=== PATIENT | male | born 1950 | race Caucasian/White ===

== ENCOUNTER → 2019-07-03 07:16 | Outpatient (CLI) | payer MEDICARE, OTHER, SELFPAY ==
[2019-07-03 08:07] LABS: PSA,Total- Diagnostic 0.84 ng/mL (0.0-4.0)
== END ==
PROVIDERS: Family Provider Family Medicine; PCP Family Medicine
DX: D40.0 Neoplasm of uncertain behavior of prostate (principal)
CPT/HCPCS: 36415; 84153

== ENCOUNTER → 2020-05-30 08:08 | Outpatient (CLI) | payer MEDICARE, OTHER, SELFPAY | PROVIDERS: PCP Family Medicine | DX: D40.0 Neoplasm of uncertain behavior of prostate (principal) | CPT/HCPCS: 36415; 84153 ==

== ENCOUNTER → 2021-05-23 06:06 | Outpatient (CLI) | payer MEDICARE, OTHER, SELFPAY ==
[2021-05-23 07:52] LABS: Hemoglobin A1c 6.6 % (3.8-5.6)
[2021-05-23 08:01] LABS: ALB/GLOB Ratio 0.9 RATIO (0.9-2.4); AST(SGOT) 21 U/L (15-37); Alanine Aminotransfer ALT/SGPT 49 U/L (16-61); Albumin, Serum 3.6 g/dL (3.2-5.0); Alkaline Phosphatase 77 U/L (45-117); Anion Gap 8 (5-15); BUN 24 mg/dL (7-18); BUN/Creat Ratio 23.1 RATIO (10-20); Calcium,Total 9.2 mg/dL (8.5-10.1); Chloride 102 mmol/L (98-107); Cholesterol 112 mg/dL (200); Creatinine, Serum 1.04 mg/dL (0.70-1.30); EST Glomerular Filtration Rate 75 mL/min (>60); Est Glom Filt Rate - Afr Amer 90 mL/min (>60); Globulin 3.9 g/dL (2.2-4.2); Glucose 131 mg/dL (74-106); High Density Lipoprotein 36 mg/dL; Potassium 3.5 mmol/L (3.5-5.1); Protein, Total 7.5 g/dL (6.4-8.2); Sodium Level 139 mmol/L (136-145); Thyroid Stim Hormone (TSH) 2.13 uIU/mL (0.358-3.74); Triglycerides 188 mg/dL; Very Low Density Lipoprotein 38 mg/dL (5-40)
== END ==
PROVIDERS: PCP Family Medicine; Referring Provider Family Medicine; Visit Provider Family Medicine
DX: E11.69 Type 2 diabetes mellitus with other specified complication (principal); E78.2 Mixed hyperlipidemia
CPT/HCPCS: 36415; 80053; 80061; 83036; 84443

== ENCOUNTER → 2021-06-17 06:52 | Outpatient (CLI) | payer MEDICARE, OTHER, SELFPAY ==
[2021-06-17 08:34] LABS: PSA,Total- Diagnostic 1.18 ng/mL (0.0-4.0)
== END ==
PROVIDERS: PCP Family Medicine
DX: N42.9 Disorder of prostate, unspecified (principal)
CPT/HCPCS: 36415; 84153

== ENCOUNTER 2021-09-03 08:01 | Outpatient (CLI) | payer MEDICARE, OTHER, SELFPAY ==
[2021-09-03 08:42] LABS: Anion Gap 5 (5-15); BUN 23 mg/dL (7-18); BUN/Creat Ratio 22.1 RATIO (10-20); Calcium,Total 8.8 mg/dL (8.5-10.1); Chloride 105 mmol/L (98-107); Creatinine, Serum 1.04 mg/dL (0.70-1.30); EST Glomerular Filtration Rate 75 mL/min (>60); Est Glom Filt Rate - Afr Amer 90 mL/min (>60); Glucose 142 mg/dL (74-106); Potassium 3.9 mmol/L (3.5-5.1); Sodium Level 139 mmol/L (136-145)
== END 2021-09-03 23:59 | disposition short-term general hospital (02) ==
LOC: LAB 08:03
PROVIDERS: PCP Family Medicine; Referring Provider Anesthesiology Pain Medicine; Visit Provider Anesthesiology Pain Medicine
DX: Z79.82 Long term (current) use of aspirin (principal)
CPT/HCPCS: 36415; 80048

== ENCOUNTER → 2022-07-06 | Outpatient (CLI) | payer MEDICARE, OTHER, SELFPAY ==
[2022-07-06 07:28] LABS: Absolute Lymphocyte Count 2.63 X10^3/uL (0.83-4.51); Absolute Neutrophil Count 4.3 X10^3/uL (2.0-7.7); Basophil# 0.04 X10^3/uL; Basophil% 0.5 % (0-1); Eosinophils% 3.8 % (0-5); Hematocrit 47.6 % (40-54); Hemoglobin 15.7 g/dL (13.0-16.5); Lymphocyte # 2.63 X10^3/ul (0.83-4.51); Lymphocyte % 33.5 % (19-41); Mean Corpuscular Volume 84.8 fL (80-94); Mean Platelet Vol. 9.8 fl (6.2-12.0); Monocyte# 0.55 X10^3/uL; NRBC Flagged by Analyzer 0 % (0-5); Neutrophil # 4.28 X10^3/uL (2.7-7.7); Neutrophil % 54.4 % (47-70); Platelet Count 264 K/mm3 (150-450); RBC Distribution Width CV 13.1 % (11.6-14.6); RBC Distribution Width SD 40.4 fl (35.1-43.9); Red Blood Count 5.61 M/mm3 (4.6-6.2); White Blood Count 7.9 K/mm3 (4.4-11.0)
[2022-07-06 08:02] LABS: AST(SGOT) 20 U/L (15-37); Alanine Aminotransfer ALT/SGPT 40 U/L (16-61); Albumin, Serum 3.7 g/dL (3.2-5.0); Alkaline Phosphatase 104 U/L (45-117); Anion Gap 5 (5-15); BUN 31 mg/dL (7-18); BUN/Creat Ratio 26.7 RATIO (10-20); Calcium,Total 9.2 mg/dL (8.5-10.1); Chloride 104 mmol/L (98-107); Cholesterol 132 mg/dL (200); Creatinine, Serum 1.16 mg/dL (0.70-1.30); EST Glomerular Filtration Rate 66 mL/min (>60); Est Glom Filt Rate - Afr Amer 79 mL/min (>60); Globulin 3.6 g/dL (2.2-4.2); Glucose 174 mg/dL (74-106); High Density Lipoprotein 33 mg/dL; Potassium 3.8 mmol/L (3.5-5.1); Protein, Total 7.3 g/dL (6.4-8.2); Sodium Level 140 mmol/L (136-145); Thyroid Stim Hormone (TSH) 2.51 uIU/mL (0.358-3.74); Triglycerides 395 mg/dL; Very Low Density Lipoprotein 79 mg/dL (5-40)
[2022-07-06 08:23] LABS: Hemoglobin A1c 5.9 % (3.8-5.6)
== END | disposition home or self-care (01) ==
LOC: LAB 06:25
PROVIDERS: PCP Family Medicine; Referring Provider Family Medicine; Visit Provider Family Medicine
DX: I10 Essential (primary) hypertension (principal); E11.69 Type 2 diabetes mellitus with other specified complication; E78.2 Mixed hyperlipidemia
CPT/HCPCS: 36415; 80053; 80061; 83036; 84443; 85025

== ENCOUNTER → 2022-07-20 | Outpatient (CLI) | payer MEDICARE, OTHER, SELFPAY ==
[2022-07-20 15:59] LABS: PSA,Total - Annual Screen 1.49 ng/mL (0.00-4.00)
== END | disposition home or self-care (01) ==
LOC: LAB 14:02
PROVIDERS: PCP Family Medicine
DX: N42.9 Disorder of prostate, unspecified (principal); Z12.5 Encounter for screening for malignant neoplasm of prostate
CPT/HCPCS: 36415; 84153; G0103

== ENCOUNTER → 2022-09-23 | Outpatient (CLI) | payer MEDICARE, OTHER, SELFPAY ==
--- NOTE | 2022-09-23 07:57 | MRI_ITS ---
STUDY: MRI LUMBAR SPINE WITHOUT CONTRAST REASON FOR EXAM: Male, 72 years old. Acute lumbar radiculopathy. TECHNIQUE: Standardized fat and water weighted pulse sequences were obtained in the sagittal and axial planes. COMPARISON: Lumbar spine radiographs on 08/04/2023. FINDINGS: T11-T12: (Sagittal only). Normal endplates. Minimal disc space height narrowing. Normal disc hydration and morphology. Normal central canal and bilateral intervertebral neural foramina. T12-L1: (Sagittal only). Normal endplates. Normal disc height, hydration and morphology. Normal central canal and bilateral intervertebral neural foramina. Normal lumbar lordosis. There is no substantial scoliosis. Normal conus medullaris that terminates at the upper T12 vertebral body level. L1-2: Normal endplates. Normal disc height, hydration and morphology. Normal bilateral facet joints. Normal central canal and bilateral lateral recesses. Normal bilateral intervertebral neural foramina. L2-3: Normal endplates. Mild disc space height narrowing. Minimal ventral extradural defect due to small posterior bulging annulus. Normal facet joints. Normal central canal and bilateral lateral recesses. Mild dorsal epidural lipomatosis. Normal bilateral intervertebral neural foramina. L3-4: Normal endplates. Normal disc space height. Minimal ventral extradural defect due to small posterior bulging annulus. Normal facet joints. Mild dorsal epidural lipomatosis. Mild to moderate central canal stenosis with an AP canal diameter of 8 mm secondary to prominent dorsal epidural lipomatosis more than developmentally short pedicles. Normal bilateral lateral recesses. Moderate stenosis of the right intervertebral neural foramen due to suspicious small right posterior cephalad foraminal disc extrusion (series 2, image 12; series 3, image 12; series 5, images 14-15; series 6, images 14-15). L4-5: Normal endplates. Normal disc height and hydration. Minimal ventral extradural defect due to small posterior bulging annulus. No significant facet arthropathy. Moderately pronounced central canal stenosis with an AP canal diameter of 6.3 mm secondary to developmentally short pedicles and posterior ligamenta flava hypertrophy. Normal bilateral lateral recesses. Normal bilateral intervertebral neural foramina. L5-S1: Normal endplates. Normal disc height, hydration and morphology. Prominent ventral epidural fat. Tapered termination of the thecal sac at the lower S1 body level. Moderate central canal stenosis with an AP canal diameter 7 mm. Normal bilateral lateral recesses. Normal bilateral intervertebral neural foramina. Normal visualized sacral ala. Normal visualized paraspinous soft tissue structures. MRI/Spine Lumbar (Routine) IMPRESSION: 1. Suspicious right L3-L4 posterior cephalad foraminal disc extrusion with minimal displacement of the right L3 nerve (series 2 and 3, image 12; series 5 and 6, images 14-15). Additionally, mild to moderate central canal stenosis with an AP canal diameter of 8 mm secondary to prominent dorsal epidural lipomatosis. 2. Moderately pronounced central canal stenosis at L4-L5 disc space level with an AP canal diameter of 6.3 mm secondary to developmentally short pedicles and posterior ligamenta flava hypertrophy. 3. Moderate central canal stenosis at L5-S1 disc space level with an AP canal diameter of 7 mm and tapered termination of the thecal sac of the lower S1 body level. The central canal stenosis mainly due to prominent ventral epidural lipomatosis. Electronically Signed: Yamil Jimenez MD at 9:30 EST ,
== END | disposition home or self-care (01) ==
LOC: MRI 07:57
PROVIDERS: PCP Family Medicine; Referring Provider Orthopaedic Surgery; Visit Provider Orthopaedic Surgery
DX: M54.16 Radiculopathy, lumbar region (principal)
CPT/HCPCS: 72148

== ENCOUNTER 2023-05-02 09:35 | Emergency (ER) | payer MEDICARE, OTHER, SELFPAY ==
[2023-05-02 09:36] VITALS: BP 149/96; PULSE 90; RESP 14; TEMP 36.2; O2SAT 97; BMI 29.5
--- NOTE | 2023-05-02 10:48 | EX.ED.DYSGE1 ---
HPI History of Present Illness Chief Complaint: Rash Narrative Narrative: 72-year-old male past medical history of diabetes, hypertension, presents with itchy rash to his torso that began yesterday evening. They state it is gotten worse over time. His skin has reddened and feels blotchy. He relates history that he was on Lotensin a few weeks ago, and his blood pressure was too low. He was also taking amlodipine at the time/combination drug. His Lotensin was stopped by his primary care provider and he was started on a low-dose of metoprolol 25 mg. That was recently increased to 50 mg, and they doubled his amlodipine to 10 mg over 320 mg. He started having cold-like symptoms and upper respiratory infection type symptoms a few days ago and while he is taking Coricidin HBP in the past without problems, he took 1 on Wednesday, and the following day he developed this rash on his torso, mainly his chest and abdomen, which is now spread to his back. He denies any stridor, no tongue swelling or throat closing, no difficulty breathing or swallowing. He states that he was afraid to take another antihistamine because he takes Claritin every 24 hours as a general seasonal allergy antihistamine. He presents because of the itchy rash to his trunk. He has already tried applying the steroid that he was given in the past to the rash, but it seems to be worsening. [facility] Medical History History of skin cancer History of trigger finger Home Medications amlodipine 10 mg-valsartan 160 mg tablet (Exforge) 1 tab PO DAILY 08/10/20 [History Last Taken Unknown] loratadine 10 mg tablet (Claritin) 10 mg PO DAILY 08/10/20 [History Last Taken Unknown] metformin 500 mg tablet 500 mg PO BID 08/10/20 [History Last Taken Unknown] montelukast 10 mg tablet (Singulair) 10 mg PO DAILY 08/10/20 [History Last Taken Unknown] rosuvastatin 20 mg tablet 20 mg PO DAILY 08/10/20 [History Last Taken Unknown] benazepril 10 mg-hydrochlorothiazide 12.5 mg tablet 1 tab PO 08/27/22 [History Last Taken Unknown] cholecalciferol (vitamin D3) 25 mcg (1,000 unit) capsule 25 mcg PO DAILY 08/27/22 [History Last Taken Unknown] glyburide 5 mg tablet 5 mg PO 08/27/22 [History Last Taken Unknown] nabumetone 750 mg tablet 750 mg PO DAILY Pain #30 tabs 12/03/22 [Rx Last Taken Unknown] Allergy/AdvReac Type Severity Reaction Status Date / Time Penicillins Allergy Hives Verified 05/02/23 09:35 Family History Father Hypertension Surgical History Hx of skin graft Social History Smoking Status: Never smoker alcohol intake: never ROS ROS ED ROS Narrative Constitutional: No fever, no chills. HEENT: No sore throat. No neck pain. No loss of vision. No rhinorrhea. Difficulty breathing or swallowing. Throat closing or tongue swelling. Cardiovascular: No chest pain. No palpitations. No pedal edema. Respiratory: No cough, no shortness of breath. Abdominal: No abdominal pain. No nausea. No vomiting. Genitourinary: No dysuria. No hematuria. Musculoskeletal: No myalgias. No arthralgias. Neurologic: No headaches. No dizziness. No lightheadedness. Skin: Positive red, slightly raised, itchy rash torso front and back. No change in color. Psychiatric: No depression. No anxiety. EXAM Physical Exam Narrative Exam Narrative: Afebrile. Vital signs noted. Toxic appearing. HEENT: Normocephalic. Atraumatic. PERRL, EOMI. Neck soft and supple. No point tenderness or step off. Patent. No stridor. Cardiovascular: Regular rate and rhythm. No murmurs, rubs, or gallops appreciated. Respiratory: No tachypnea. Lungs clear to auscultation bilaterally. Wheezing. Gastrointestinal: Abdomen soft, nontender, with normoactive bowel sounds. No rebound or guarding. Neurological: Awake. Alert. Nonfocal, nonlateralizing. Skin: Diffuse, erythematous rash on trunk and back, not consistent with hives, slightly raised.. Normal color. No pallor. Musculoskeletal: No pedal edema. Full range of motion extremities. Const Vital Signs: 05/02/23 09:36 Temperature 97.1 F L Temperature Source Temporal Pulse Rate 90 Respiratory Rate 14 Blood Pressure 149/96 H Blood Pressure Mean 113 Pulse Ox 97 Oxygen Delivery Method Room Air MDM MDM MDM Narrative Medical decision making narrative: Do feel that patient has more of a drug reaction, most likely to Coricidin. I do not feel epinephrine is indicated. His pulse ox is 97% on room air without evidence of hypoxia. I had a lengthy discussion with the patient and his . As he has started a few new medications, he did not have a reaction until he started Coricidin again on Wednesday. He will avoid use of Coricidin HBP for now and take an antihistamine in the form of Benadryl. I discussed the use of steroids with him, although he is diabetic, and he states that he is going to get an injection of his SI joints with steroid, so he deferred any prescription of oral prednisone. He was told that he may need to follow-up with allergy/immunology. I do not feel he requires observation or any imaging or laboratory work. I feel he can be discharged safely home with follow-up. Return instructions to the emergency department were reviewed. Patient and are agreeable to the plan. Disposition is discharged home in stable condition. History & Record Review Discussion w/independent historian: Patient and Family Additional record(s) reviewed:: Prior outpatient record Discharge Plan Triage Chief Complaint: Rash ED Provider: Yamil Ortiz Dx/Rx/DC Orders Clinical Impression: Allergic drug rash, Dermatitis Instructions: ED General Allergic Reactions, ED Drug Reaction, Other Prescriptions: No Action loratadine [Claritin] 10 mg tablet 10 mg PO DAILY rosuvastatin 20 mg tablet 20 mg PO DAILY metformin 500 mg tablet 500 mg PO BID montelukast [Singulair] 10 mg tablet 10 mg PO DAILY amlodipine-valsartan [Exforge] 10-160 mg tablet 1 tab PO DAILY glyburide 5 mg tablet 5 mg PO benazepril-hydrochlorothiazide 10-12.5 mg tablet 1 tab PO Patient Comments: TAKE 1 TABLET BY MOUTH TWICE A DAY FOR 90 DAYS cholecalciferol (vitamin D3) 25 mcg (1,000 unit) capsule 25 mcg PO DAILY nabumetone 750 mg tablet 750 mg PO DAILY Qty: 30 3RF Primary Care Provider: Pedro Disla Referrals: Pedro Disla MD [Primary Care Provider] - 1-2 Days if not improving Activity Restrictions/Additional Instructions: Take Benadryl 25 mg every 4-6 hours as needed for itching. Avoid use of Coricidin HBP. Disposition Disposition: Home, Self Care
== END 2023-05-02 11:00 | disposition home or self-care (01) ==
PROVIDERS: Emergency Provider Emergency Medicine; PCP Family Medicine; Visit Provider Emergency Medicine
DX: D72.12 Drug rash with eosinophilia and systemic symptoms syndrome (principal); E11.620 Type 2 diabetes mellitus with diabetic dermatitis; T39.1X5A Adverse effect of 4-Aminophenol derivatives, initial encounter; I10 Essential (primary) hypertension
CPT/HCPCS: 99282

== ENCOUNTER → 2023-07-06 | Outpatient (CLI) | payer MEDICARE, OTHER, SELFPAY ==
[2023-07-06 12:48] LABS: PSA,Total- Diagnostic 1.53 ng/mL (0.0-4.0)
== END | disposition home or self-care (01) ==
LOC: LAB 11:22
PROVIDERS: PCP Family Medicine
DX: N42.9 Disorder of prostate, unspecified (principal)
CPT/HCPCS: 36415; 84153

== ENCOUNTER 2023-11-21 14:23 | Emergency (ER) | payer MEDICARE, OTHER, SELFPAY ==
[2023-11-21 14:24] VITALS: BP 117/79; PULSE 102; RESP 16; TEMP 36.2; O2SAT 98
--- NOTE | 2023-11-21 15:03 | EX.ED.DYSGE1 ---
HPI History of Present Illness Chief Complaint: Nausea/Vomiting/Diarrhea Narrative Narrative: 73-year-old male presenting with nausea, vomiting, diarrhea since last evening. No black or bloody stools or emesis. No fever at home. He does admit to body aches and chills. No foods out of the ordinary. No known sick contacts. Patient is not having abdominal pain but states he does get some cramping with the diarrhea. No urinary complaints. [facility] Medical History History of skin cancer History of trigger finger Home Medications loratadine 10 mg tablet (Claritin) 10 mg PO DAILY 08/10/20 [History Last Taken Unknown] metformin 500 mg tablet 1,000 mg PO BID 08/10/20 [History Last Taken Unknown] montelukast 10 mg tablet (Singulair) 10 mg PO DAILY 08/10/20 [History Last Taken Unknown] rosuvastatin 20 mg tablet 20 mg PO DAILY 08/10/20 [History Last Taken Unknown] cholecalciferol (vitamin D3) 25 mcg (1,000 unit) capsule 25 mcg PO DAILY 08/27/22 [History Last Taken Unknown] glyburide 5 mg tablet 5 mg PO DAILY 08/27/22 [History Last Taken Unknown] chlorthalidone 50 mg tablet 50 mg PO DAILY 08/26/23 [History Last Taken Unknown] metoprolol succinate 50 mg tablet,extended release 24 hr 50 mg PO DAILY 08/26/23 [History Last Taken Unknown] amlodipine 10 mg-valsartan 320 mg tablet 1 tab PO DAILY 11/21/23 [History Last Taken Unknown] nabumetone 500 mg tablet 500 mg PO TID 11/21/23 [History Last Taken Unknown] ondansetron 4 mg disintegrating tablet 4 mg PO Q8H PRN PRN Nausea #14 tabs 11/21/23 [Rx Last Taken Unknown] Allergy/AdvReac Type Severity Reaction Status Date / Time Penicillins Allergy Hives Verified 11/21/23 14:25 Family History Father Hypertension Surgical History Hx of skin graft Social History Smoking Status: Former smoker alcohol intake: never ROS ROS ED Constitutional Constitutional ED: Denies chills, fever(s) or sweats Eyes Eyes: Denies blurry vision or change in vision ENT ENT ED: Denies ear pain or sore throat Cardiovascular Cardiovascular: Denies chest pain, palpitations or racing heartbeat Respiratory/Chest Respiratory/Chest: Denies cough, dyspnea or sputum Gastrointestinal Gastrointestinal: Reports diarrhea, nausea and vomiting; Denies abdominal pain or constipation Genitourinary Genitourinary ED: Denies dysuria, hematuria or urinary frequency Musculoskeletal Musculoskeletal: Denies arthralgias, myalgias or neck pain Integumentary Denies abscess, Abrasions or rash Neurologic Neurologic: Denies headache(s), paresthesias or weakness Psychiatric Psychiatric: Denies anxiety, depression, suicidal ideation or suicidal thoughts Endocrine Endocrinology: Denies polydipsia or polyuria EXAM Physical Exam Const Vital Signs: 11/21/23 14:24 11/21/23 16:00 Temperature 97.2 F L 98.6 F Temperature Source Temporal Pulse Rate 102 H 72 Respiratory Rate 16 20 H Blood Pressure 117/79 115/73 Blood Pressure Mean 91 87 Pulse Ox 98 99 Oxygen Delivery Method Room Air Positive well nourished General Appearance ED: NAD; Negative for pallor HEENT Reports moist mucous membranes Eyes PERRL and EOMs intact bilaterally Neck no lymphadenopathy Chest Wall inspection of chest normal Resp normal respiratory effort and clear to auscultation bilaterally Auscultation: Negative for rales, rhonchi or wheezes Cardio regular rate and regular rhythm GI normal to inspection, nondistended, normoactive bowel sounds Neuro oriented x3 and CN's II-XII intact bilaterally Sensorium / Orientation: alert Psych mental status grossly normal Skin no rashes or lesions noted General Skin Exam: Negative for jaundice or pallor MDM MDM MDM Narrative Medical decision making narrative: Patient presenting nausea, vomiting, diarrhea. Vital signs are stable he is afebrile. Physical exam is unremarkable. Patient given oral Zofran and he was able to tolerate p.o. fluids. At this point I do not believe he needs any blood work or imaging. He did request to have viral testing done which was performed and is pending. On reevaluation the patient is drinking fluids and states is feeling much better. He requesting Zofran for home. Patient discharged home in stable condition. Impression: 1 viral syndrome 2. Nausea/vomiting Discharge Plan Triage Chief Complaint: Nausea/Vomiting/Diarrhea ED Provider: Bruno Narvaez Dx/Rx/DC Orders Instructions: ED Gastroenteritis, Viral (Adult) Prescriptions: New ondansetron 4 mg tablet,disintegrating 4 mg PO Q8H PRN PRN (Reason: Nausea) Qty: 14 0RF No Action loratadine [Claritin] 10 mg tablet 10 mg PO DAILY rosuvastatin 20 mg tablet 20 mg PO DAILY metformin 500 mg tablet 1,000 mg PO BID montelukast [Singulair] 10 mg tablet 10 mg PO DAILY glyburide 5 mg tablet 5 mg PO DAILY cholecalciferol (vitamin D3) 25 mcg (1,000 unit) capsule 25 mcg PO DAILY metoprolol succinate 50 mg tablet extended release 24 hr 50 mg PO DAILY Patient Comments: TAKE 1 TABLET BY MOUTH EVERY DAY FOR 90 DAYS chlorthalidone 50 mg tablet 50 mg PO DAILY Patient Comments: TAKE 1 TABLET BY MOUTH EVERY DAY IN THE MORNING WITH FOOD amlodipine-valsartan 10-320 mg tablet 1 tab PO DAILY nabumetone 500 mg tablet 500 mg PO TID Primary Care Provider: Pedro Disla Referrals: Pedro Disla MD [Primary Care Provider] - Disposition Disposition: Home, Self Care Discharge Date/Time: 11/21/23 16:01
[2023-11-21] MEDS: Ondansetron ODT 4 MG Tablet PO (15:10)
[2023-11-21 16:00] VITALS: BP 115/73; PULSE 72; RESP 20; TEMP 37; O2SAT 99
== END 2023-11-21 16:01 | disposition home or self-care (01) ==
PROVIDERS: Emergency Provider Student in an Organized Health Care Education/Training Program; PCP Family Medicine; Visit Provider Student in an Organized Health Care Education/Training Program
DX: R11.2 Nausea with vomiting, unspecified (principal); B34.9 Viral infection, unspecified; R19.7 Diarrhea, unspecified; Z87.891 Personal history of nicotine dependence; Z85.828 Personal history of other malignant neoplasm of skin
CPT/HCPCS: 87631; 99282

== ENCOUNTER → 2024-07-20 | Outpatient (CLI) | payer MEDICARE, OTHER, SELFPAY ==
[2024-07-22 09:08] LABS: PSA, Free 0.45 ng/mL; PSA, Free % 24.9 % (.)
== END | disposition home or self-care (01) ==
LOC: LAB 14:29
PROVIDERS: PCP Family Medicine
DX: N42.9 Disorder of prostate, unspecified (principal)
CPT/HCPCS: 36415; 84153; 84154

== ENCOUNTER → 2024-09-20 | Outpatient (CLI) | payer MEDICARE, SELFPAY ==
--- NOTE | 2024-09-20 09:55 | RAD_ITS ---
EXAM: XR Left Foot Complete, 3 or More Views CLINICAL INDICATION: TECHNIQUE: Frontal, lateral and oblique views of the left foot. COMPARISON: No relevant prior studies available. FINDINGS: BONES/JOINTS: Unremarkable. No acute fracture. No dislocation. SOFT TISSUES: Unremarkable. No radiopaque foreign body. RAD/Foot min 3 Views IMPRESSION: No acute fracture. Reading Location: [facility]
== END | disposition home or self-care (01) ==
LOC: RAD 09:49
PROVIDERS: PCP Family Medicine; Referring Provider Anesthesiology Pain Medicine; Visit Provider Anesthesiology Pain Medicine
DX: M79.672 Pain in left foot (principal)
CPT/HCPCS: 73630

== ENCOUNTER → 2025-06-29 | Outpatient (CLI) | payer MEDICARE, SELFPAY ==
[2025-06-29 08:10] LABS: PSA,Total- Diagnostic 2.09 ng/mL (0.00-4.00)
== END | disposition home or self-care (01) ==
LOC: LAB 06:07
PROVIDERS: PCP Family Medicine
DX: N42.9 Disorder of prostate, unspecified (principal)
CPT/HCPCS: 36415; 84153